=== PATIENT | male | born 1980 | race African-American/Black ===

== ENCOUNTER 2016-12-13 12:51 | Emergency (ER) | payer SELFPAY ==
[~2016-12-13 12:51] MED LIST: ALBUTEROL2.5 MG/0.1 IH; ALBUTEROL2.5 MG/3 M IH; PREDNISONE20 M1; PREDNISONE20 M1 PO; VENTOLIN HFA18 G2 PO
[2016-12-13] MEDS ORDERED: VENTOLIN HFA18 G2 INH (14:26)
[2016-12-13] MEDS ORDERED: IPRAT-ALBUT 0.5-3 ML AERO NEB (14:27)
[2016-12-13] MEDS ORDERED: SYMBICORT 160-1 PUFF INH (14:27)
[2016-12-13] MEDS ORDERED: BACITRAYCIN PLU28 GM TP (14:32)
[2016-12-13] MEDS ORDERED: CLINDAMYCIN HC150 M1 PO (14:35)
[2017-03-10] MEDS ORDERED: CLEOCIN HCL300 M1 PO (12:47)
[2017-03-10] MEDS ORDERED: PREDNISONE10 M1 PO (12:51)
== END 2016-12-13 14:55 ==
LOC: EDMED 12:51
DX: S60.512A Abrasion of left hand, initial encounter (principal); J45.909 Unspecified asthma, uncomplicated; W22.09XA Striking against other stationary object, initial encounter